=== PATIENT | male | born 1955 | race American Indian/Alaskan Native ===

== ENCOUNTER 2020-01-21 06:38 | Day surgery (SDC) | payer BC ==
[2020-01-21] MEDS ORDERED: SODIUM CHLORIDE 0.9% 500 ML 500 ML IV SCH (08:00)
[2020-01-21 08:05] LABS: INR 0.91 (0.87-1.13)
[2020-01-21 08:06] LABS: Partial Thromboplastin Time 30.1 Sec. (24.2-36.6)
[2020-01-21 08:10] LABS: Basophils # (Auto) 0.1 K/mm3 (0.0-0.1); Basophils % (Auto) 0.7 % (0.0-1.8); Eosinophils # (Auto) 0.3 K/mm3 (0.0-0.4); Eosinophils % (Auto) 4.1 % (0.0-4.3); Hematocrit 37.3 % (35.5-45.6); Hemoglobin 12.5 gm/dl (11.8-15.2); Lymphocytes # (Auto) 2.7 K/mm3 (1.2-5.4); Mean Corpuscular HGB Conc 33 % (32-34); Mean Corpuscular Volume 82 fl (84-94); Monocytes # (Auto) 0.7 K/mm3 (0.0-0.8); Monocytes % (Auto) 9.7 % (0.0-7.3); Platelet Count 275 K/mm3 (140-440); Red Blood Count 4.54 M/mm3 (3.65-5.03); Red Cell Distribution Width 14.3 % (13.2-15.2)
[2020-01-21] MEDS ORDERED: HEPARIN/NS 5000 UNIT/500ML 1,000 ML IR ONE (08:22)
[2020-01-21 08:50] LABS: BUN/Creatinine Ratio 16; Blood Urea Nitrogen 18 mg/dL (9-20); Calcium 9.9 mg/dL (8.4-10.2); Hemolysis Index 9
[2020-01-21] MEDS ORDERED: POTASSIUM CHLORIDE ER 20 MEQ TAB PO ONE ×2 (09:20→09:22)
[2020-01-21] MEDS: MIDAZOLAM 2 MG/2 ML INJ ONE ×2 (10:16→10:18)
[2020-01-21] MEDS: LIDOCAINE (2%) 20 MG/1 ML VIAL 20 ML MDV INFILTRATI ONE ×2 (10:16→10:19)
[2020-01-21] MEDS: NITROGLYCERIN SYRINGE 3 ML ONE ×2 (10:16→10:20)
[2020-01-21] MEDS: fentaNYL 100 MCG/2 ML INJ ONE ×2 (10:16→10:18)
[2020-01-21] MEDS: VERAPAMIL 5 MG/2 ML INJ ONE ×2 (10:17→10:20)
[2020-01-21] MEDS: HEPARIN 10,000 UNITS/10 ML VIAL ONE ×2 (10:17→10:20)
--- NOTE | 2020-01-21 10:36 | Short Stay Summary ---
Short Stay Documentation Date of service: 01/21/20 - History H&P: obtained from office - Allergies and Medications Current Medications: Allergies No Known Allergies Allergy (Unverified 01/13/14 16:42) Home Medications Medication Instructions Recorded Confirmed Last Taken Type Escitalopram [Lexapro] 10 mg PO DAILY 01/14/14 01/21/20 01/20/20 History Irbesartan [Avapro] 300 mg PO DAILY 01/14/14 01/21/20 01/20/20 History C,E,Zinc,Copper 24/Om3/Lut/Ihsan 1 tab PO DAILY 01/18/14 01/21/20 01/20/20 History [Ocuvite Adult 50 Plus Softgel] Multivitamin [Multi-Vitamin Daily] 1 tab PO DAILY 01/18/14 01/21/20 01/20/20 His tory [place]-3 Fatty Acids/Fish Oil [Fish 1,000 mg PO DAILY 01/18/14 01/21/20 01/20/20 History Oil 1,000 mg Softgel] Aspirin [Aspirin BABY CHEW TAB] 81 mg PO QDAY tab.chew 03/07/16 01/21/20 0 01/21/20 Rx Metoprolol [Lopressor TAB] 100 mg PO BID tablet 03/07/16 01/21/20 01/21/20 Rx Simvastatin [Zocor TAB] 40 mg PO QHS tablet 03/07/16 01/21/20 01/20/20 Rx Triamter/Hctz 75-50 mg (Nf) 1 each PO DAILY tablet 03/07/16 01/21/20 01/20/20 Rx [Maxzide 75-50 mg] amLODIPine 5 mg PO QDAY tablet 03/07/16 01/21/20 01/21/20 Rx hydrALAZINE [Apresoline TAB] 25 mg PO DAILY tablet 03/07/16 01/21/20 01/21/20 Rx Ezetimibe [Zetia] 10 mg PO QDAY 01/21/20 01/21/20 01/20/20 History Sitagliptin Phos/Metformin HCl 1 tab PO DAILY 01/21/20 01/21/20 01/20/20 History [Janumet XR 100-1,000 mg] Active Medications Sodium Chloride (Nacl 0.9% 500 Ml) 500 mls @ 50 mls/hr IV DIRECT JASPER Stop: 01/21/20 17:59 Last Admin: 01/21/20 08:51 Dose: 50 mls/hr Documented by: - Brief post op/procedure progress note Date of procedure: 01/21/20 Pre-op diagnosis: sob and preop Post-op diagnosis: same Procedure: see report Anesthesia: local Estimated blood loss: none Pathology: none - Disposition Condition at discharge: Good Disposition: [id number] TO HOME OR SELFCARE - Discharge Diagnoses (1) SOB (shortness of breath) on exertion Status: Chronic (2) CAD (coronary artery disease) Status: Chronic Qualifiers: Coronary Disease-Associated Artery/Lesion type: [place] artery [place] vs. transplanted heart: [place] heart Associated angina: without angina Qualified Code(s): I25.10 - Atherosclerotic heart disease of [place] coronary artery without angina pectoris (3) Diabetes mellitus Status: Chronic Qualifiers: Diabetes mellitus type: type 2 Diabetes mellitus longterm insulin use: with termite exterminator helper use Diabetes mellitus complication status: without complication Qualified Code(s): E11.9 - Type 2 diabetes mellitus without complications; Z79.4 - keno terminal operator (current) use of insulin (4) Hyperlipidemia Status: Chronic Qualifiers: Hyperlipidemia type: mixed hyperlipidemia Qualified Code(s): E78.2 - Mixed hyperlipidemia (5) Hypertension Status: Chronic Qualifiers: Hypertension type: essential hypertension Qualified Code(s): I10 - Essential (primary) hypertension (6) Morbid obesity Status: Chronic Short Stay Discharge Plan Activity: advance as tolerated Diet: low fat, low cholesterol, low salt, diabetic Wound: keep clean and dry Special Instructions: hold Metformin (for two days) Follow up with: MARCO ADAM MD [Primary Care Provider] - 7 Days
[2020-01-21] MEDS ORDERED: traMADol 50 MG TAB PO PRN (11:00)
--- NOTE | 2020-01-21 11:03 | Cardiac Catherization Report ---
LEFT HEART CATHETERIZATION CLINICAL INFORMATION: A 64-year-old male with morbid obesity as per preop for gastric bypass, has shortness of breath, unable to do stress test. The patient has known coronary artery disease with a distal LAD stent placed in 2016 at 2.5 x 12. The patient has hypertension, diabetes, cholesterol. The patient was done with moderate sedation started at 1018 hours and finished at 1026 hours, 8 minutes of moderate sedation. Procedure was done via the right radial artery, sterile technique, local anesthesia, 6-Swedish radial sheath inserted. PROCEDURE FINDINGS: Left system, JL3.5 catheter, left main is large and patent, bifurcates into large LAD that is patent proximal and mid, distal stent is widely patent. Diagonal 1 is a medium caliber vessel, patent. Circumflex is a large caliber vessel, patent. Ramus is a medium caliber vessel, patent, mild luminal irregularities. OM1 is a medium caliber vessel, patent. OM2 has multiple branches that are patent. RCA is a large dominant vessel engaged with JR4, patent from proximally and distally with mild luminal irregularities. PDA, PLV are medium caliber vessel, patent. LV gram done in [place] and FIGUEROA shows normal LV function, LVEDP of 30 mmHg, LV is 137, aortic is 137/70. No gradient across the aortic valve on pullback. 5-Swedish catheters all taken over a guidewire. 6-Swedish radial sheath was discontinued. Radial band applied. No hematoma, no bleeding. SUMMARY: Left main patent; left anterior descending proximal and mid patent, distal stent patent, diagonal 1 patent; ramus patent, mild luminal irregularities; circumflex patent; OM1 and OM2 patent; RCA large, dominant, patent with mild luminal irregularities; PDA, PLV patent; normal LV function. The patient has no cardiac contraindication for gastric bypass surgery. JOB# [id number] YIMI/CRISTHIAN
[2020-01-21 13:43] VITALS: BP 135/67
== END 2020-01-21 14:15 | disposition home or self-care (01) ==
LOC: CATHLABREC 06:38
PROVIDERS: ATTEND Internal Medicine
DX: R06.02 Shortness of breath (principal); I10 Essential (primary) hypertension; I25.10 Atherosclerotic heart disease of native coronary artery without angina pectoris; E11.9 Type 2 diabetes mellitus without complications; E66.01 Morbid (severe) obesity due to excess calories; E78.5 Hyperlipidemia, unspecified; G47.30 Sleep apnea, unspecified; K21.9 Gastro-esophageal reflux disease without esophagitis; M19.90 Unspecified osteoarthritis, unspecified site; F32.9 Major depressive disorder, single episode, unspecified; D64.9 Anemia, unspecified; Z79.899 Other long term (current) drug therapy; Z79.82 Long term (current) use of aspirin; Z68.43 Body mass index [BMI] 50.0-59.9, adult; Z95.5 Presence of coronary angioplasty implant and graft; Z72.89 Other problems related to lifestyle; Z98.890 Other specified postprocedural states; Z83.3 Family history of diabetes mellitus; Z80.8 Family history of malignant neoplasm of other organs or systems; Z82.49 Family history of ischemic heart disease and other diseases of the circulatory system
CPT/HCPCS: 36415; 80048; 85025; 85610; 85730; 93005; 93458; C1894; J1644; J2250; J3010; J7040; Q9967